=== PATIENT | female | born 1955 | race Caucasian/White ===

== ENCOUNTER 2023-04-14 13:37 | Outpatient (CLI) | payer MEDICARE | END 2023-04-14 23:59 | disposition home or self-care (01) | LOC: RAD 13:37 | PROVIDERS: ATTEND Family Medicine | DX: M16.11 Unilateral primary osteoarthritis, right hip (principal); M51.37 Other intervertebral disc degeneration, lumbosacral region; K80.80 Other cholelithiasis without obstruction; R10.30 Lower abdominal pain, unspecified; M25.551 Pain in right hip | CPT/HCPCS: 73700; 74176 ==

== ENCOUNTER 2023-04-20 10:40 | Outpatient (CLI) | payer MEDICARE | END 2023-04-20 23:59 | disposition home or self-care (01) | LOC: RAD 10:40 | PROVIDERS: ATTEND Family Medicine | DX: M19.012 Primary osteoarthritis, left shoulder (principal); M19.011 Primary osteoarthritis, right shoulder; M25.559 Pain in unspecified hip; R68.89 Other general symptoms and signs | CPT/HCPCS: 78306; A9503 ==

== ENCOUNTER → 2023-04-30 | Outpatient (CLI) | payer MEDICARE | END | disposition home or self-care (01) | LOC: RAD 12:19 | PROVIDERS: ATTEND Family Medicine | DX: M25.551 Pain in right hip (principal) | CPT/HCPCS: 73721 ==

== ENCOUNTER 2023-05-31 11:03 | Outpatient (CLI) | payer MEDICARE ==
[2023-05-31] MEDS ORDERED: GADOTERATE MEGLUMINE 7.5 MMOL/15 ML VIAL IV ONE (12:41)
== END 2023-05-31 23:59 | disposition home or self-care (01) ==
LOC: RAD 11:03
PROVIDERS: ATTEND Family Medicine
DX: N28.1 Cyst of kidney, acquired (principal); K80.80 Other cholelithiasis without obstruction; K76.9 Liver disease, unspecified
CPT/HCPCS: 74183; A9575

== ENCOUNTER 2023-06-18 13:36 | Outpatient (CLI) | payer MEDICARE ==
[~2023-06-18 13:36] MED LIST: PRED20TA PO
== END 2023-06-18 23:59 | disposition home or self-care (01) ==
LOC: MRI 13:36
PROVIDERS: ATTEND Family Medicine
DX: M51.16 Intervertebral disc disorders with radiculopathy, lumbar region (principal); M53.84 Other specified dorsopathies, thoracic region; K76.89 Other specified diseases of liver
CPT/HCPCS: 72146; 72148

== ENCOUNTER 2024-02-03 09:24 | Outpatient (CLI) | payer MEDICARE | END 2024-02-03 23:59 | disposition home or self-care (01) | LOC: US 09:24 | PROVIDERS: ATTEND Family Medicine | DX: K76.0 Fatty (change of) liver, not elsewhere classified (principal); R94.5 Abnormal results of liver function studies; K80.20 Calculus of gallbladder without cholecystitis without obstruction | CPT/HCPCS: 76700 ==

== ENCOUNTER 2024-02-08 08:30 | Outpatient (CLI) | payer MEDICARE | END 2024-02-08 23:59 | disposition home or self-care (01) | LOC: MRI 08:30 | PROVIDERS: ATTEND Family Medicine | DX: K80.50 Calculus of bile duct without cholangitis or cholecystitis without obstruction (principal) | CPT/HCPCS: 74181 ==

== ENCOUNTER 2024-08-02 08:23 | Outpatient (CLI) | payer MEDICARE ==
[~2024-08-02 08:23] MED LIST changes: -PRED20TA PO; +iohexol 300mg/ml 100ml inj. ONE
--- NOTE | 2024-08-02 11:56 | RADIOLOGY REPORT ---
Exam: CT CT ABDOMEN PELVIS W/ IV ORAL CONTRAST History: EPIGASTRIC PAIN Comparison Study: MRCP 02/08/2024 Technique: Multidetector spiral CT of the abdomen and pelvis was performed from lung bases to pubic s ymphysis. Initial imaging was done without IV contrast, followed by post contrast images of the abdo men and pelvis. Intravenous contrast was administered during this examination. Portal venous imaging was obtained. Axial, coronal and sagittal multiplanar reformats were performed by the technologist o n a separate workstation. CONTRAST: Type of contrast: Omni 300 Contrast injected: 100 ml Radiation Dose : CT Dose: CTDI volume is 22 mGy. Dose-length product is 2233 mGy*cm Findings: Lung Bases: No acute or significant lung base finding. Normal heart size. No pleural or pericardial effusion. Liver: 2 right hepatic masses likely represent hemangioma measuring up to 15 mm and 27 mm. Gallbladder and biliary Tree: Gallbladder is surgically absent. Spleen: Unremarkable Pancreas: The pancreas is normal in appearance without focal lesions or abnormal enhancement. Adrenal Glands: Unremarkable Kidneys: Left renal cysts. No hydronephrosis. Bladder: Unremarkable Bowel: The stomach is grossly normal in appearance. Small bowel and colon are normal in caliber and d istribution. Normal appendix is visualized in the right lower quadrant without findings of appendici tis. Ascites: Absent Lymphadenopathy: No mesenteric, retroperitoneal or periportal lymphadenopathy. Abdominal wall and Mesentery: Unremarkable. Vasculature: The visualized abdominal aorta is normal in size and caliber. Abdominal and pelvic vess els demonstrate normal enhancement. Pelvic Organs: The uterus is surgically absent. Musculoskeletal: No aggressive focal bony lesions, acute fractures or dislocation. IMPRESSION: 1. No acute abdominal or pelvic finding. Right hepatic masses likely represent hemangioma. Left darwin l cysts. Radiation optimization: All CT scans at this facility use at least one of these dose optimization thor hniques: Automated exposure control mA and/or kV adjustment per patient size (includes targeted exams where dose is matched to clinical indication) or iterative reconstruction. HS:Y
== END 2024-08-02 23:59 | disposition home or self-care (01) ==
LOC: RAD 08:23
PROVIDERS: ATTEND Family Medicine
DX: R16.0 Hepatomegaly, not elsewhere classified (principal); R10.13 Epigastric pain; N28.1 Cyst of kidney, acquired
CPT/HCPCS: 74178; Q9967